=== PATIENT | female | born 1995 | race Caucasian/White ===

== ENCOUNTER 2017-12-01 17:57 | Emergency (ER) | payer SELFPAY ==
[2017-12-01 19:17] LABS: BASO % 0.3 % (0.0-2.0); EOS # 0.1 K/uL (0.0-0.7); EOS % 0.9 % (0.0-4.0); HEMOGLOBIN 8.2 g/dL (11.0-16.0); LYMPH # 4.3 K/uL (1.0-4.3); LYMPH % 44.9 % (20.0-40.0); MEAN CELL VOLUME 64.5 fL (81.0-99.0); MEAN PLATELET VOLUME 7.6 fL (7.2-11.7); MONO # 0.7 K/uL (0.0-0.8); MONO % 7.1 % (0.0-10.0); NEUT # 4.5 K/uL (1.8-7.0); NEUT % 46.8 % (50.0-75.0); RBC 4.11 Mil/uL (3.80-5.20); RED CELL DISTRIBUTION WIDTH 19.8 % (11.5-14.5); WHITE BLOOD COUNT 9.6 K/uL (4.8-10.8)
[2017-12-01 19:27] LABS: ALB/GLOB RATIO 1.3 (1.0-2.1); ALBUMIN 4.4 g/dL (3.5-5.0); ALT/SGPT 23 U/L (9-52); AST/SGOT 22 U/L (14-36); BLOOD UREA NITROGEN 9 mg/dL (7-17); CALCIUM 9.5 mg/dl (8.6-10.4); GFR AFRICAN-AMERICAN > 60; GFR NON-AFRICAN AMERICAN > 60
[2017-12-01 19:34] LABS: HCG,QUALITATIVE URINE NEGATIVE (NEGATIVE)
[2017-12-01 19:39] LABS: SQUAMOUS EPITHIAL 1 /hpf (0-5); URINE BACTERIA RARE (<OCC); URINE BILIRUBIN NEGATIVE (NEGATIVE); URINE BLOOD 2+ (NEGATIVE); URINE CLARITY Clear (Clear); URINE COLOR Straw (YELLOW); URINE GLUCOSE (UA) NORMAL (Normal); URINE LEUKOCYTE ESTERASE NEG Leu/uL (Negative); URINE PROTEIN NEGATIVE (NEGATIVE); URINE UROBILINOGEN NORMAL mg/dL (0.2-1.0)
--- NOTE | 2017-12-01 19:50 | C.PDOC ---
History Of Present Illness 22 year old female presents to the emergency department with complaints of dysfunctional uterine bleeding. Patient reports that she has a history of similar symptoms in the past, and that she just completed her menstrual period but started bleeding again today. She denies shortness of breath and dyspnea on exertion. Time Seen by Provider: 12/01/17 19:22 Chief Complaint (Nursing): Female Genitourinary History Per: Patient History/Exam Limitations: no limitations Onset/Duration Of Symptoms: Hrs Current Symptoms Are (Timing): Still Present Associated Symptoms: Other (uterine bleeding) Past Medical History Reviewed: Historical Data, Nursing Documentation, Vital Signs Vital Signs: Last Vital Signs Temp 98.8 F 12/01/17 20:19 Pulse 78 12/01/17 20:19 Resp 14 12/01/17 20:19 BP 107/48 L 12/01/17 20:19 Pulse Ox 98 12/01/17 20:19 - Medical History PMH: No Chronic Diseases Surgical History: No Surg Hx Family History: States: No Known Family Hx - Social History Hx Alcohol Use: No Hx Substance Use: No Review Of Systems Except As Marked, All Systems Reviewed And Found Negative. Respiratory: Negative for: Shortness of Breath, Other (dyspnea on exertion) Genitourinary: Positive for: Vaginal Bleeding Physical Exam - Physical Exam Appears: Non-toxic, No Acute Distress Skin: Warm, Dry, Other (mildly pale) Head: Atraumatic, Normacephalic Eye(s): bilateral: Normal Inspection Nose: Normal Oral Mucosa: Moist Throat: Normal, No Erythema, No Exudate Neck: Normal, Supple Chest: Symmetrical, No Tenderness Cardiovascular: Rhythm Regular, No Murmur Respiratory: Normal Breath Sounds, No Rales, No Rhonchi, No Wheezing Gastrointestinal/Abdominal: Normal Exam, Soft, No Tenderness, No Guarding, No Rebound Extremity: Normal ROM Neurological/Psych: Oriented x3, Normal Speech, Normal Cognition ED Course And Treatment - Laboratory Results Result Diagrams: 12/01/17 19:12 12/01/17 19:12 Lab Interpretation: Abnormal (microcytic) Urine POC: Negative O2 Sat by Pulse Oximetry: 100 (RA) Pulse Ox Interpretation: Normal - Physician Consult Information Outcome Of Conversation: d/w Dr. Miah RESENDEZ, ok to d/c on Provera and Iron supplements and opt f/u. Medical Decision Making Medical Decision Making: DUB and microcytic anemia Plan: Blood Bank Type and Screen CMP CBC Provera 10mg PO HCG Qualitative Urine Urinalysis Spoke to Dr. Jenkins, personal counselor [employer], at 19:40, recommends Provera and Iron supplements, as well as an outpatient follow-up. Disposition Doctor Will See Patient In The: Office Counseled Patient/Family Regarding: Studies Performed, Diagnosis - Disposition Referrals: [facility] [Outside] [facility] [Outside] [facility] [employer] [facility] [Outside] Bri Jenkins DO [Staff Provider] - Disposition: HOME/ ROUTINE Disposition Time: 19:50 Condition: GOOD Additional Instructions: Provera 10 mg daily for 10 days- will stop vaginal bleeding. Iron deficiency anemia: Iron Sulfate: 325 mg three times a day Take with a stool softner daily as oral iron supplements are very constipating. Follow-up with our OBGYN Clinic in the next 2-3 weeks Call for an appointment. Dr. Jenkins- OBGYJayde- is Health Information Specialist Today. Prescriptions: Ferrous Sulfate [Ferosul] 325 mg PO TID #90 tablet MedroxyPROGESTERone [Provera] 1 tab PO DAILY #9 tab Instructions: Anemia Caused by Low Iron, Heavy Periods Forms: [employer] ([place]) - Clinical Impression Clinical Impression: DUB (dysfunctional uterine bleeding), Iron deficiency anemia due to chronic blood loss - Scribe Statement The provider has reviewed the documentation as recorded by the Scribe (Mahesh Vidal) Provider Attestation: All medical record entries made by the Scribe were at my direction and personally dictated by me. I have reviewed the chart and agree that the record accurately reflects my personal performance of the history, physical exam, medical decision making, and the department course for this patient. I have also personally directed, reviewed, and agree with the discharge instructions and disposition.
[2017-12-01 20:20] VITALS: BP 107/48; PULSE 78; RESP 14; TEMP 98.8
[2017-12-01 21:34] VITALS: O2SAT 100
== END 2017-12-01 20:19 | disposition home or self-care (01) ==
LOC: C.ER 17:57
DX: N93.8 Other specified abnormal uterine and vaginal bleeding (principal); D50.0 Iron deficiency anemia secondary to blood loss (chronic)